=== PATIENT | male | born 2000 | race Hispanic/Latino ===

== ENCOUNTER 2024-06-01 03:20 | Emergency (ER) | payer SELFPAY ==
[2024-06-01] MEDS ORDERED: Ketorolac Tromethamine 30 MG (1 mL) VIAL ONE (03:35)
[2024-06-01] MEDS ORDERED: Ondansetron PF 4 MG/2 ML Vial ONE ×2 (03:35→06:04)
[2024-06-01 03:58] LABS: #Basophils 0.05 10x3/uL (0.0-0.2); %Basophils 0.6 % (0.0-1.0); %Eosinophils 1.3 % (0.0-10.0); %Lymphocytes 25.1 % (21.0-51.0); %Monocytes 11.9 % (0.0-10.0); %Neutrophils 60.7 % (42.0-75.0); Hematocrit 46.3 % (42.0-52.0); Hemoglobin 16.5 g/dL (14.0-18.0); Mean Corpuscular HGB CONC 35.6 g/dL (32.0-36.0); Mean Corpuscular Volume 89.9 fL (78.0-98.0); Platelet Count 288 10x3/uL (130-400); RBC Distribution Width 11.9 % (11.5-14.5); Red Blood Cell (RBC) Count 5.15 mill/uL (4.70-6.10)
[2024-06-01 04:20] LABS: ALT (SGPT) 198 U/L (8-55); AST (SGOT) 65 U/L (5-34); Albumin 4.9 g/dL (3.5-5.0); Alkaline Phosphatase 161 U/L (40-110); Anion Gap 19 mmol/L (10-20); BUN (Urea Nitrogen) 11 mg/dL (8.9-20.6); Bilirubin, Total 2.2 mg/dL (0.2-1.2); Calc. Creatinine Clearance 0 mL/min (70-130); Calcium 10.8 mg/dL (7.8-10.44); Carbon Dioxide 24 mmol/L (22-29); Chloride 100 mmol/L (98-107); Estimated GFR 126; Globulin 3.2 g/dL (2.4-3.5); Glucose 115 mg/dL (70-105); Lipase 92 U/L (8-78); Potassium 3.6 mmol/L (3.5-5.1); Protein, Total 8.1 g/dL (6.0-8.3); Sodium 139 mmol/L (136-145)
[2024-06-01 04:24] LABS: Troponin I Less than 0.010 ng/mL (< 0.028)
[2024-06-01] MEDS ORDERED: Morphine 4 MG/ML VIAL ONE ×2 (05:04→08:41)
[2024-06-01] MEDS ORDERED: Sodium Chloride 0.9% 0 ML ONE (07:11)
[2024-06-01] MEDS ORDERED: Droperidol 5 MG/2 ML VIAL ONE (07:11)
[2024-06-01] MEDS ORDERED: Droperidol 5 MG/2 ML VIAL SLOW IVP SCH (07:15)
[2024-06-01] MEDS ORDERED: Iopamidol 370 76% 100 ML VIAL ONE (10:45)
== END 2024-06-01 08:53 | disposition home or self-care (01) ==
LOC: ERS 03:20
DX: K76.0 Fatty (change of) liver, not elsewhere classified (principal); R11.2 Nausea with vomiting, unspecified; Z75.8 Other problems related to medical facilities and other health care
CPT/HCPCS: 71045; 74177; 76705; 80053; 83690; 84484; 85025; 93005; 96374; 96375; 96376; J1790; J1885; J2272; J2405; Q9967